=== PATIENT | female | born 1955 | race Caucasian/White ===

== ENCOUNTER → 2020-06-27 13:55 | Outpatient (BNVA) | payer MEDICAID, SELFPAY | PROVIDERS: Family Provider Internal Medicine; PCP Internal Medicine; Visit Provider Dermatology | DX: C44.319 Basal cell carcinoma of skin of other parts of face (principal); C44.91 Basal cell carcinoma of skin, unspecified; R59.0 Localized enlarged lymph nodes; L82.1 Other seborrheic keratosis; D17.22 Benign lipomatous neoplasm of skin and subcutaneous tissue of left arm; F17.210 Nicotine dependence, cigarettes, uncomplicated | CPT/HCPCS: 99203 ==

== ENCOUNTER 2020-07-19 09:31 | Outpatient (CLI) | payer MEDICAID, SELFPAY ==
--- NOTE | 2020-07-19 10:00 | CT_ITS ---
WS: [id number] CT NECK WITH CONTRAST HISTORY: left preauricular mass TECHNIQUE: Contiguous 5 mm axial images are performed through the neck with intravenous contrast. Sag ittal and coronal reformats are also submitted. All CT scans at [facility] use at least o ne of these dose optimization techniques: automated exposure control; mA and/or kV adjustment per pat ient size (includes targeted exams where dose is matched to clinical indication); or iterative recons truction. CONTRAST: CONTRAST: Omnipaque 300; 95 mL IV. DLP: 1632.67 mGy-cm. COMPARISON: None available. Nasopharynx, oropharynx, hypopharynx and larynx are unremarkable. No soft tissue masses or abnormal e nhancement. Torus tubarius and fossa of Rosenmuller and parapharyngeal fat are normal. No significant lymphadenopathy is identified. Parotid glands: There is a large lobulated hypervascular mass centered in the superficial superior pa rotid gland. Mass extends over length of 2.0 cm with a maximum transverse diameter of 1.2 cm. The sup erior lobulation enhances and contains some cystic or necrotic components. The more inferior componen t is hypervascular. There is a small adjacent lymph node or satellite lesion more superficial. No mas s within the RIGHT parotid gland. Normal submandibular glands and tiny subcentimeter LEFT thyroid nodule. Straightening of the normal cervical lordosis. C3 and C4 anterolisthesis by 3 mm. C4-5 and C5-6 degen erative disc disease and osteophytosis. Visualized portions of the skull base demonstrate no abnormalities. Orbits and globes are within norm al limits. No soft tissue masses. Visualized paranasal sinuses and mastoid air cells are normal. Lung apices are clear. CT/CT neck w con* [id number] IMPRESSION: 1. Lobulated hypervascular mass within the superior superficial LEFT parotid g land. Benign and malignant etiologies should be considered. Pleomorphic adenoma , Warthin's tumor and carcinoma within the differential. 2. No cervical chain adenopathy.
[2020-07-19] MEDS: iohexol 300 mg/mL 100 mL Btl IV (11:24)
--- NOTE | 2020-09-10 06:58 | W.PM.OPSUD ---
Surgery/Procedure H&P Update DATE OF PROCEDURE: September 10, 2020 DATE H&P PERFORMED: 08/19/20 H&P UPDATE INFORMATION: I have reviewed H&P completed within last 30 days, I have examined patient prior to procedure and No changes to prior documentation PREOP DIAGNOSIS: Left parotid mass; left temporal skin lesion PRIMARY INDICATION FOR PROCEDURE: Left parotid mass; left temporal skin lesion PLANNED PROCEDURE: Left parotidectomy, possible left neck dissection; excision left temporal skin lesion
== END 2020-07-19 09:32 | disposition home or self-care (01) ==
LOC: RADWPI 09:37
PROVIDERS: Family Provider Internal Medicine; PCP Internal Medicine; Visit Provider Dermatology
DX: R59.1 Generalized enlarged lymph nodes (principal); D49.0 Neoplasm of unspecified behavior of digestive system
CPT/HCPCS: 12345; 70491; Q9967

== ENCOUNTER 2020-09-10 10:59 | Observation (INO) | payer MEDICAID, SELFPAY ==
[2020-09-09 09:42] VITALS: BMI 28.8
[2020-09-10] VITALS (18 sets, daily range): BP systolic 93–136; BP diastolic 50–81; PULSE 67–93; RESP 13–21; TEMP 36.1–37; O2SAT 90–99
[2020-09-10] MEDS: sodium chloride 0.9% 1,000 ML 30 ML IV (06:34)
--- NOTE | 2020-09-10 06:57 | ANES.PREANE2 ---
Pre-Anesthetic Assessment Pre-Anesthetic Assessment: Height/Weight: Height 1.63 m Weight 76.204 kg Temp Pulse Resp BP Pulse Ox 98.6 F 69 18 136/72 96 09/10/20 06:11 09/10/20 06:11 09/10/20 06:11 09/10/20 06:11 09/10/20 06:11 Proposed Procedure: Operation Date: 09/10/20 07:00 Proposed Procedures p Parotidectomy [id number](Left) - Danny Birmingham MD s possible fat graft(Left) - Danny Birmingham MD Was Beta Osbaldo taken within 24 hours: Yes Last intake: Intake Last Liquid Date 09/09/20 Last Liquid Time 22:00 Last Solid Date 09/09/20 Last Solid Time 22:00 Social: Social History: Tobacco and No alcohol Exam: Pre-Anes Outpt Exam: alert, oriented x 3 and regular rate & rhythm Additional Exam Findings (including area of procedure): Rhonchi Airway: Submandibular: WNL Cervical ROM: WNL MP: 2 Dentition: False Pulmonary: Pulmonary: COPD CV/HEM: CV/HEM: HTN : : None reported Hepatic: Hepatic: None reported GI: GI: None reported Metabolic: Metabolic: None reported Musc/skel: Musc/skel: Fibromyalgia and Lower Back Pain Comments: BLE neuropathy Neuropsych: Neuropsych: Anxiety Anesthetic Plan: ASA status: 3 Anesthesia: General Risk of > 500 ml blood loss (7ml/kg in children): No Meds/Allergies Current Medications: Current Medications Generic Name Dose Route Start Last Admin Trade Name Freq PRN Reason Stop Dose Admin Sodium Chloride 1,000 mls @ 30 ml s/hr 09/10/20 06:15 09/10/20 06:34 Sodium Chloride 0.9% IV 09/11/20 06:14 30 mls/hr .Q24H REN Administration PFSH Anesthesia PFSH: Family History Other Diabetes Social History Smoking and tobacco status: current every day smoker cigarettes Packs smoked per day: 1 Alcohol intake: never History of recent travel: No Data Anesthesia Cardiac Studies: No Data to Display
--- NOTE | 2020-09-10 08:13 | SUR.OPER ---
Family Notified Of Patient's Status Via Phone.
[2020-09-10] MEDS: fluorescein 1 mg Strip 2 MG XX (08:23)
[2020-09-10] MEDS: ceFAZolin 1,000 mg SDV 1000 MG IRRIGATION (08:23)
[2020-09-10] MEDS: thrombin 5,000 unit SDV 5000 UNIT XX ×2 (08:23→10:39)
[2020-09-10] MEDS: EPINEPHrine 1 mg/mL INJ 2 MG XX (08:24)
[2020-09-10] MEDS: mupirocin oint 22 gm 1 APPLIC TOPICAL (08:25)
[2020-09-10] MEDS: EPINEPHrine 1 mg/mL INJ XX (08:55)
--- NOTE | 2020-09-10 09:16 | SUR.OPER ---
Family Notified Of Patient's Status Via Phone.
[2020-09-10] MEDS: dexamethasone 4 mg/mL INJ XX ×2 (10:26→10:38)
--- NOTE | 2020-09-10 11:52 | PM.OP ---
Operative Report Date of procedure: September 10, 2020 Pre-op Diagnosis: Left parotid mass; left temporal skin lesion Post-op diagnosis: same Post-op Findings: Left superficial parotid mass Left temporal skin lesion Procedure Done: Left superficial parotidectomy Left abdominal fat graft harvest Excisional biopsy, left temporal skin lesion Implants: None Specimens removed/disposition: Left superficial parotid mass Left temporal skin lesion Pathology: Left superficial parotid mass Left temporal skin lesion Surgeon: Danny Birmingham Fire Systems Inspector: Renato Saxena Fire Systems Inspector: Keeley Trinidad Anesthesia: General Estimated blood loss (mL): 30 IV fluids (mL): 1,400 Urine output (mL): 800 Complications: None Findings: Left preauricular superficial parotid mass resting on the facial nerve Left facial nerve identified and preserved in place Left temporal skin lesion Condition: stable Disposition: PACU Brief History: 64 yo wf with a h/o a left parotid mass and left temporal skin lesion who desires surgical therapy. Procedure: The patient was identified in the preoperative holding area and was taken to the operating room she was placed on the operating table supine position. Anesthesia was obtained with general endotracheal anesthesia and the table was turned 180 degrees. The patient's head was turned to the right exposing the left face to the operating surgeon and a modified Justen incision was drawn out on the patient's left facial skin. An ellipse was drawn out around the patient's left temporal skin lesion and the incisions were injected with local anesthesia. The Nirvana nerve monitoring system was placed on the patient and the patient was then prepped and draped in usual sterile fashion. The left facial skin incision was made with a 15 blade and was carried down through subcutaneous tissues with sharp scissors. A flap was raised over the left parotid gland that was anteriorly based with Metzenbaum scissors. The mass was identified in the left parotid by palpation and was marked with a clip. The dissection then began along a wide front in the immediate preauricular area and down over the sternocleidomastoid muscle. The tail of parotid was freed from the preauricular tissues and the sternocleidomastoid muscle. The left greater auricular nerve was identified and preserved in place. At this point while dissecting along the a wide front with the deepest portion being in the tympanomastoid suture area, the facial nerve was identified with the Nirvana nerve monitoring hemostat. The facial nerve was then dissected out in all of its branches while removing the mass identified previously. The left preauricular skin lesion was excised in elliptical fashion with a 15 blade and sharp scissors and hemostasis was achieved with cautery. This skin lesion was marked with suture and the skin lesion and the parotid mass were sent for frozen section analysis. The parotid mass came back as a benign tumor and the skin lesion came back with clear margins. Once this was accomplished attention was turned to the left lower quadrant where a fat graft was harvested with a 15 blade and Metzenbaum scissors. The left lower quadrant wound was then closed with interrupted Monocryl sutures subcu and interrupted 3-0 Prolene on the skin after placing a Sascha drain in the wound. The abdominal wound was then covered with a sterile dressing that was taped in place. The fat graft was then cut to the appropriate size and placed in the left facial wound and was sutured in place with interrupted 4-0 Monocryl sutures. The facial nerve was covered with Gelfoam soaked in thrombin. After placing the Gelfoam, a small CARMELO drain was placed in the wound and was sutured in place. The wound was closed with interrupted 4-0 Monocryl sutures subcu and running 5-0 Prolene on the skin. At this point the left temporal skin wound was undermined and then closed interrupted 5-0 Monocryl sutures subcu and a running 5-0 Prolene on the skin. At this point the procedure was terminated and control of the patient was returned to anesthesia where she underwent an uneventful reversal of anesthesia and extubation and was taken to the recovery room stable condition. There were no operative or anesthetic complications.
[2020-09-10] MEDS: fentaNYL 50 mcg/mL INJ 2mL IVP ×2 (12:15→12:20)
[2020-09-10] MEDS: triamcinolone 40 mg/mL SDV IM (12:29)
--- NOTE | 2020-09-10 12:50 | ANE.PACU2 ---
Inpatient post-anesthesia follow up: Airway intact: Yes Vital signs: Temperature 98.1 F Pulse Rate 56 Respiratory Rate 18 Blood Pressure 129/67 Pulse Oximetry 96 Oxygen Delivery Me thod Room Air Oxygen Flow Rate 2 Fraction of Inspir ed Oxygen Hydration adequate: Yes Nausea and vomiting: No Pain level: 2 Mental status: Baseline
--- NOTE | 2020-09-10 13:19 | PC.NURSE ---
was told that her daughter had her belongings
--- NOTE | 2020-09-10 13:31 | PC.NURSE ---
1300 PATIENT CAME UP WITH SCD'S ON AND SO MACHINE WAS OBTAINED AND CONNECTED TO THEM AND THEY ARE ON NOW AND WORKING.
--- NOTE | 2020-09-10 13:44 | PTH.FRZRPT ---
Frozen Section Notes Specimen(s): A. Left parotid mass B. Left temporal skin lesion, suture anterior Gross: The specimen is received in 2 containers labeled with the patient's name and MRN number. Specimen A, left parotid mass consists of a 5.5 x 2.3 x 1 cm fragment of soft tissue. The specimen is entirely inked in blue and serially sectioned to reveal a 3.1 cm fleshy mass. A section of which is submitted in cassette FS A1. Specimen B, left temporal skin lesion, suture anterior consists of a 2.3 x 0.9 x 0.2 cm gutierrez-white skin ellipse with hair follicles and a suture designated anterior, the specimen is entirely inked and the superior inferior margin is submitted for frozen section FS B1. Preliminary Impression: A. Parotid gland, left, mass, frozen section diagnosis: ?Lesional tissue with atypia (differential diagnoses includes myoepithelioma and/or myoepithelial carcinoma, basal cell carcinoma etc based on additional sections). ?Margin is negative, as the lesion is well encapsulated. B. Skin, left temporal lesion, suture anterior , excision: ?Superior inferior margin negative for malignancy. - Specimen Information Pathologist: Yolanda Vergara Date: 09/10/20 Specimen reported at what time: 10:15 - Clinician Specimen collection time: 09:50 Clinician reported to: Danny Birmingham
[2020-09-10] MEDS: lactated ringers 1,000 ML 100 ML IV (14:20)
[2020-09-10] MEDS: famotidine 20 mg/2 mL INJ IVP (14:20)
[2020-09-10] MEDS: HYDROcodone-acetaminophen 5-325 mg Tablet 1 TAB PO ×2 (14:28→20:30)
[2020-09-10] MEDS: docusate sodium 100 mg Capsule PO (17:02)
--- NOTE | 2020-09-10 17:58 | P.PN_ITS ---
Subjective Subjective: Interval history: 64 yo wf who is night of surgery s/p left superficial parotidectomy and excisional biopsy of a left temporal skin lesion. The patient reports that she is doing well. She has been able to eat, and has no other c/o. Vitals/I&O/Wt Last Vital Signs Temp 97 F L 09/10/20 13:00 Pulse 73 09/10/20 15:45 Resp 16 09/10/20 15:45 BP 93/50 09/10/20 13:00 Pulse Ox 93 09/10/20 15:45 09/10/20 09/10/20 09/10/20 06:59 14:59 22:59 Intake Total 1460 / 1460 Output Total 1630 / 1630 Balance -170 / -170 Weight last 48 hrs Weight 76.204 kg Physical Exam Const: COMMON NORMALS: no acute distress, average body habitus, patient oriented x3 and alert HENMT: COMMON NORMALS: normocephalic and external ears normal HEAD & SCALP: normocephalic EXTERNAL EAR: Yes external ears normal Eye: COMMON NORMALS: EOMs intact bilaterally and conjunctivae normal CONJUNCTIVA: Yes conjunctivae normal Neck/C-Spine: COMMON NORMALS: no lymphadenopathy THYROID: other (The left facial/neck wound is clean, intact, and without fluctuance.) Lymph: LYMPHATIC: no lymphadenopathy noted Resp: COMMON NORMALS: normal respiratory effort, No use of accessory muscles and clear to auscultation bilaterally AUSCULTATION: clear to auscultation bilaterally Cardio: COMMON NORMALS: regular rate and regular rhythm RATE: regular rate RHYTHM: regular rhythm GI: COMMON NORMALS: Normal to inspection, nondistended, normoactive bowel sounds present and non-tender Extremity: COMMON NORMALS: normal to inspection and no clubbing, cyanosis or edema Neuro: COMMON NORMALS: patient oriented x3 and CN's II-XII intact bilaterally SENSORIUM/ORIENTATION: Yes alert Skin: COMMON NORMALS: no rashes or lesions noted GENERAL SKIN EXAM: no rashes or lesions noted Urinary Catheter Management^: F: Cath Placed During This Visit: yes, but has since been removed by the nurse Urinary Catheter Date of Insertion: 09/10/20 Urinary Catheter Time of Insertion: 07:25 Date Urinary Catheter Removed: 09/10/20 Time Urinary Catheter Discontinued: 11:28 A&P Additional A&P Information Impression: Night of surgery s/p left superficial parotidectomy for left parotid mass and excisional biopsy of a left temporal skin lesion - the patient is doing well Plan: Pain control; closed suction drainage; regular diet; overnight observation; I anticipate d/c in the morning. Attestations Medical Necessity Statement*: The patient requires overnght observation for pain control and airway management. Coding Level of Care Code Acute Postal Delivery Officer for Matheus Wilson
[2020-09-10] MEDS: bacitracin ointment 28 gm 1 APPLIC TOPICAL (20:36)
[2020-09-11] MEDS: lactated ringers 1,000 ML 100 ML IV (00:15)
[2020-09-11 00:19] VITALS: BP 119/70; PULSE 69; RESP 18; TEMP 36.6; O2SAT 96
[2020-09-11] MEDS: famotidine 20 mg/2 mL INJ IVP (03:16)
--- NOTE | 2020-09-11 05:08 | PM.PN ---
Subjective Subjective: Interval history: 64 yo wf who is POD #1 s/p left superficial parotidectomy and excision of a left temporal skin lesion. The patient is without c/o this morning. She has been able to eat without difficulty and is o/w without c/o. Vitals/I&O/Wt Last Vital Signs Temp 97.9 F 09/11/20 00:19 Pulse 69 09/11/20 00:19 Resp 18 09/11/20 00:19 BP 119/70 09/11/20 00:19 Pulse Ox 96 09/11/20 00:19 09/10/20 09/10/20 09/11/20 14:59 22:59 06:59 Intake Total 1460 / 1460 991.667 / 2451.667 Output Total 1630 / 1630 Balance -170 / -170 991.667 / 821.667 Weight last 48 hrs Weight 76.204 kg Physical Exam Const: COMMON NORMALS: no acute distress and patient oriented x3 GENERAL APPEARANCE: well hydrated HENMT: COMMON NORMALS: normocephalic and external ears normal HEAD & SCALP: normocephalic FACE & SINUS: normal facial exam and other (The 7th Cranial nerve is intact bilaterally in all branches.) EXTERNAL EAR: Yes external ears normal Eye: COMMON NORMALS: EOMs intact bilaterally and conjunctivae normal GENERAL EYE: appearance normal, both eyes and all related structures CONJUNCTIVA: Yes conjunctivae normal Neck/C-Spine: COMMON NORMALS: no lymphadenopathy Lymph: LYMPHATIC: no lymphadenopathy noted Resp: COMMON NORMALS: normal respiratory effort, No use of accessory muscles and clear to auscultation bilaterally AUSCULTATION: clear to auscultation bilaterally Cardio: COMMON NORMALS: regular rate and regular rhythm RATE: regular rate RHYTHM: regular rhythm GI: COMMON NORMALS: Normal to inspection, nondistended, normoactive bowel sounds present and Soft to palpation INSPECTION: Yes other (The left lower quadrant wound is clean, dry, and intact without erythema) PALPATION: Yes Soft to palpation Extremity: COMMON NORMALS: normal to inspection Neuro: COMMON NORMALS: patient oriented x3, CN's II-XII intact bilaterally and moves all extremities Psych: COMMON NORMALS: mental status grossly normal Skin: COMMON NORMALS: no rashes or lesions noted GENERAL SKIN EXAM: no rashes or lesions noted Urinary Catheter Management^: F: Cath Placed During This Visit: yes, but has since been removed by the nurse Urinary Catheter Date of Insertion: 09/10/20 Urinary Catheter Time of Insertion: 07:25 Date Urinary Catheter Removed: 09/10/20 Time Urinary Catheter Discontinued: 11:28 A&P Additional A&P Information Impression: 64 yo wf who is POD #1 s/p left superficial parotidectomy doing well. Plan: - Continue closed suction drainage - nursing to instruct the patient in use - Apply ALDEN to the left facial/neck wounds TID - Percocet (5/325) tabs: take 1-2 tabs po Q6 hours prn pain, #25, NR - Regular diet - Ambulate TID - Change dressing on the abdominal wound QD - F/U with Dr. Birmingham on 09/13/17 @ 13:00 - The patient is to contact Dr. Birmingham for any problems Attestations Medical Necessity Statement*: The patient required overnight observation of her airway. Coding Level of Care Code Acute Ophthalmic Photographer for Matheus Wilson
[2020-09-11 05:31] VITALS: BP 129/67; PULSE 56; RESP 18; TEMP 36.7; O2SAT 96
[2020-09-11] MEDS: HYDROcodone-acetaminophen 5-325 mg Tablet 1 TAB PO (05:33)
[2020-09-11 07:26] VITALS: BP 134/70; PULSE 59; RESP 16; TEMP 36.7; O2SAT 97
[2020-09-11] MEDS: gabapentin 100 mg Capsule PO (08:15)
[2020-09-11] MEDS: desvenlafaxine 50 mg Tablet PO (08:15)
[2020-09-11] MEDS: docusate sodium 100 mg Capsule PO (08:15)
[2020-09-11] MEDS: atenolol 50 mg Tablet 25 MG PO (08:15)
[2020-09-11] MEDS: bacitracin ointment 28 gm 1 APPLIC TOPICAL (08:15)
--- NOTE | 2020-09-11 08:36 | PC.NURSE ---
Teaching on caring CARMELO drain and dressing change to abd. Patient verbalized understanding and teach back done. patient's incision cleaned with NS and ALDEN applied.
--- NOTE | 2020-09-11 10:27 | PC.NURSE ---
patient given discharge instructions and patient verbalized understanding of instructions. patient dressed and waiting on family to arrive for ride home.
--- NOTE | 2020-09-11 11:27 | PC.NURSE ---
patient taken to private vehicle by screen writer
[2020-09-11 11:28] VITALS: BP 134/70; PULSE 59; RESP 16; TEMP 36.7; O2SAT 97
--- NOTE | 2020-09-12 09:41 | PC.RESP ---
SMOKING CESSATION INFORMATION SENT TO PATIENT.
== END 2020-09-11 11:28 | disposition home or self-care (01) ==
LOC: MEDSURG 11:00
PROVIDERS: Admitting Provider Specialist; PCP Internal Medicine; Visit Provider Specialist
PROC: (CPT 42410; principal; 2020-09-10 07:00)
PROC: (CPT 11643; 2020-09-10 07:00)
DX: D11.0 Benign neoplasm of parotid gland (principal); C44.319 Basal cell carcinoma of skin of other parts of face; J44.9 Chronic obstructive pulmonary disease, unspecified; I10 Essential (primary) hypertension; M79.7 Fibromyalgia; F41.9 Anxiety disorder, unspecified; F17.210 Nicotine dependence, cigarettes, uncomplicated
CPT/HCPCS: 11643; 12051; 42415; 12345; 51702; 88305; 88307; 94664; 96360; 96361; 96372; 96375; G0378; J0171; J0330; J0690; J1100; J1170; J2250; J2370; J2405; J2704; J3010; J3301; J3490; J7030

== ENCOUNTER 2020-10-23 12:59 | Outpatient (CLI) | payer MEDICAID, SELFPAY ==
--- NOTE | 2020-10-28 12:47 | PTH.FRZRPT ---
Frozen Section Notes Specimen(s): Left temporal suture anterior skin Gross: The specimen is received fresh in a container labeled the patient's name and MRN number and additionally labeled, skin, left temporal?suture anterior and consists of an ellipse of gutierrez-pink skin measuring 3 x 0.7 x 0.1 cm. The sutures anterior margin 6:00 and the posterior is marked 12:00. 6-12 o'clock is inked in blue and 12-6 o'clock is inked in red. The tips are submitted including serial sectioning of the margins. Preliminary Impression: A. Skin, left temporal?suture anterior, FSA 1/FSA 2: ?Basal cell carcinoma, 1 mm from the anterior margin. ?Margin is negative. - Specimen Information Pathologist: Yolanda Vergara Date: 10/23/20 Specimen reported at what time: 12:40 - Clinician Specimen collection time: 12:20 Clinician reported to: Danny Birmingham
== END 2020-10-23 13:00 | disposition home or self-care (01) ==
LOC: LAB 13:01
PROVIDERS: PCP Internal Medicine; Visit Provider Specialist
DX: C44.319 Basal cell carcinoma of skin of other parts of face (principal)
CPT/HCPCS: 88304

== ENCOUNTER 2020-12-23 13:42 | Outpatient (CLI) | payer MEDICAID, SELFPAY ==
--- NOTE | 2020-12-23 15:10 | N.ONRAD NP_ITS ---
Radiation Oncology Consultation Patient Name: Georgia Taylor Date of : 1955 Date of Service: 12/23/2020 Attending Physician: Dilan Prescott M.D. Georgia Taylor was seen in consultation this afternoon at the request of Danny Birmingham M.D. for evaluation regarding adjuvant head and neck radiotherapy for the management of a recently diagnosed parotid cancer. She presented to the [facility] dermatology clinic in June with a complaint of a new left taoist skin lesion. Examination identified a firm, painless preauricular mass. A CT of the neck obtained on July 19, 2020 identified a lobulated, hypervascular mass in the superficial parotid gland measuring 2 cm with cystic and necrotic components. A small adjacent lymph node or satellite lesion was also present. A fine-needle aspiration was on July 29, 2020. A pleomorphic adenoma was diagnosed. A left superficial parotidectomy with abdominal fat graft harvest was performed on September 10, 2020. 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 A referral to the [facility] Department of Otolaryngology for consideration of a deep lobe parotidectomy and neck dissection was obtained. An MR was recommended prior to final surgical recommendations. However, she is claustrophobic and a CT of the neck was obtained on December 17, 2020. Imaging (requested from the outside hospital and independently visualized in [facility]) demonstrated a partially resected left superficial parotid lobe. he patient presents for discussion regarding consideration for post-operative radiotherapy. I discussed with Ms. 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 I reviewed the National Comprehensive Cancer Network guidelines for adjuvant radiotherapy newly resected tumors with adverse features (i.e. intermediate or high-grade, positive margins, perineural/lymphovascular invasion, cervical lymph node metastases or advanced tumors; T3-T4) I would recommend a 6-week course of radiation therapy if CT imaging confirms no recurrent disease (will be reviewed by Danny Birmingham M.D.) Prior to beginning treatment, a planning CT scan with contrast will be acquired to delineate the clinical target volume. I reviewed the potential toxicities of head and neck radiotherapy. The patient has verbalized understanding and would like to proceed as endorsed. Signed by: Dr. Dilan Prescott 12/23/2020 3:08:41 PM
== END 2020-12-23 13:43 | disposition home or self-care (01) ==
LOC: ONCMED 13:49
PROVIDERS: Visit Provider Radiology Radiation Oncology
DX: C07 Malignant neoplasm of parotid gland (principal); C77.8 Secondary and unspecified malignant neoplasm of lymph nodes of multiple regions; Z79.899 Other long term (current) drug therapy
CPT/HCPCS: 99205

== ENCOUNTER 2021-01-01 06:16 | Outpatient (RCR) | payer MEDICAID, SELFPAY ==
--- NOTE | 2021-01-06 | CT_ITS ---
Radiation Therapy Planning CT images; total exam DLP: 513.76 mGy-cm MTDD
== END 2021-01-08 23:59 | disposition home or self-care (01) ==
LOC: ONCMED 06:16
PROVIDERS: Visit Provider Radiology Radiation Oncology
DX: Z51.0 Encounter for antineoplastic radiation therapy (principal); C07 Malignant neoplasm of parotid gland
CPT/HCPCS: 77300; 77301; 77334; 77338; Q9967

== ENCOUNTER 2021-02-06 05:45 | Outpatient (RCR) | payer MEDICAID, SELFPAY ==
--- NOTE | 2021-01-14 16:04 | ONCRAD TMN_ITS ---
Radiation Oncology Treatment Management Note Patient Name: Georgia Taylor Date of : 1955 Date of Service: 01/14/2021 Attending Physician: Dilan Prescott M.D. 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 A superficial parotidectomy with an abdominal fat graft was performed on September 10, 2020. A positive margin was present upon final pathology. The patient has received 2 Gy of a prescribed 66 Cohn with an intensity modulated radiotherapy plan utilizing a step and shoot treatment technique. Upon review of systems, she denied any complaints related to radiotherapy. On physical examination, the patient weighed 173 lbs. Her temperature was 97.9 ???F with a blood pressure of 108/64 mmHg. Her pulse was 56 bpm and the respiratory rate was 18. No erythema was present within the treatment siddiqi. Continue post-operative head and neck radiotherapy as prescribed. Signed by: Dr. Dilan Prescott 01/14/2021 4:02:36 PM
--- NOTE | 2021-01-21 15:54 | ONCRAD TMN_ITS ---
Radiation Oncology Treatment Management Note Patient Name: Georgia Taylor Date of : 1955 Date of Service: 01/21/2021 Attending Physician: Dilan Prescott M.D. 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 A superficial parotidectomy with an abdominal fat graft was performed on September 10, 2020. A positive margin was present upon final pathology. The patient has received 12 Gy of a prescribed 66 Cohn with an intensity modulated radiotherapy plan utilizing a step and shoot treatment technique. Upon review of systems, she denied any complaints related to radiotherapy. On physical examination, the patient weighed 173 lbs. Her temperature was 98.4 ???F with a blood pressure of 116/68 mmHg. Her pulse was 68 bpm and the respiratory rate was 20. There was no erythema was present within the treatment siddiqi. Continue post-operative head and neck radiotherapy as planned. Signed by: Dr. Dilan Prescott 01/21/2021 3:53:54 PM
--- NOTE | 2021-01-29 15:58 | ONCRAD TMN_ITS ---
Radiation Oncology Treatment Management Note Patient Name: Georgia Taylor Date of : 1955 Date of Service: 01/29/2021 Attending Physician: Dilan Prescott M.D. 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 A superficial parotidectomy with an abdominal fat graft was performed on September 10, 2020. A positive margin was present upon final pathology. The patient has received 18 Gy of a prescribed 66 Cohn with an intensity modulated radiotherapy plan utilizing a step and shoot treatment technique. Upon review of systems, she denied any complaints related to radiotherapy. On physical examination, the patient weighed 175 lbs. Her temperature was 98.1 ???F with a blood pressure of 123/58 mmHg. Her pulse was 68 bpm and the respiratory rate was 18. There was no erythema was present within the treatment siddiqi. Continue post-operative head and neck radiotherapy as prescribed. Signed by: Dr. Dilan Prescott 01/29/2021 3:56:39 PM
--- NOTE | 2021-02-04 15:50 | ONCRAD TMN_ITS ---
Radiation Oncology Treatment Management Note Patient Name: Georgia Taylor Date of : 1955 Date of Service: 02/04/2021 Attending Physician: Dilan Prescott M.D. 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 A superficial parotidectomy with an abdominal fat graft was performed on September 10, 2020. A positive margin was present upon final pathology. The patient has received 24 Gy of a prescribed 66 Cohn with an intensity modulated radiotherapy plan utilizing a step and shoot treatment technique. Upon review of systems, she denied any complaints related to radiotherapy. On physical examination, the patient weighed 174 lbs. Her temperature was 97.3 ???F with a blood pressure of 104/62 mmHg. Her pulse was 66 bpm and the respiratory rate was 20. There was no erythema was present within the treatment siddiqi. Continue post-operative head and neck radiotherapy as planned. Signed by: Dr. Dilan Prescott 02/04/2021 3:49:38 PM
== END 2021-02-07 23:59 | disposition home or self-care (01) ==
LOC: ONCMED 05:45
PROVIDERS: Visit Provider Radiology Radiation Oncology
DX: Z51.0 Encounter for antineoplastic radiation therapy (principal); C08.9 Malignant neoplasm of major salivary gland, unspecified
CPT/HCPCS: 77014; 77336; 77386

== ENCOUNTER 2021-03-07 05:54 | Outpatient (RCR) | payer MEDICAID, SELFPAY ==
--- NOTE | 2021-02-11 16:08 | ONCRAD TMN_ITS ---
Radiation Oncology Treatment Management Note Patient Name: Georgia Taylor Date of : 1955 Date of Service: 02/11/2021 Attending Physician: Dilan Prescott M.D. 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 A superficial parotidectomy with an abdominal fat graft was performed on September 10, 2020. A positive margin was present upon final pathology. The patient has received 32 Gy of a prescribed 66 Cohn with an intensity modulated radiotherapy plan utilizing a step and shoot treatment technique. Upon review of systems, she denied any complaints related to radiotherapy. On physical examination, the patient weighed 175 lbs. Her temperature was 97.1 ???F with a blood pressure of 108/59 mmHg. Her pulse was 65 bpm and the respiratory rate was 18. There was no erythema was present within the treatment siddiqi. Continue post-operative head and neck radiotherapy as prescribed. Signed by: Dr. Dilan Prescott 02/11/2021 4:06:57 PM
--- NOTE | 2021-02-18 16:00 | ONCRAD TMN_ITS ---
Radiation Oncology Treatment Management Note Patient Name: Georgia Taylor Date of : 1955 Date of Service: 02/18/2021 Attending Physician: Dilan Prescott M.D. 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 A superficial parotidectomy with an abdominal fat graft was performed on September 10, 2020. A positive margin was present upon final pathology. The patient has received 40 Gy of a prescribed 66 Cohn with an intensity modulated radiotherapy plan utilizing a step and shoot treatment technique. Upon review of systems, she denied any complaints related to radiotherapy. On physical examination, the patient weighed 175 lbs. Her temperature was 97.6 ???F with a blood pressure of 101/62 mmHg. Her pulse was 68 bpm and the respiratory rate was 18. There was no erythema was present within the treatment siddiqi. Continue post-operative head and neck radiotherapy as planned. Signed by: Dr. Dilan Prescott 02/18/2021 3:58:40 PM
--- NOTE | 2021-02-25 16:02 | ONCRAD TMN_ITS ---
Radiation Oncology Treatment Management Note Patient Name: Georgia Taylor Date of : 1955 Date of Service: 02/25/2021 Attending Physician: Dilan Prescott M.D. 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 A superficial parotidectomy with an abdominal fat graft was performed on September 10, 2020. A positive margin was present upon final pathology. The patient has received 44 Gy of a prescribed 66 Cohn with an intensity modulated radiotherapy plan utilizing a step and shoot treatment technique. Upon review of systems, she described fatigue. On physical examination, the patient weighed 174 lbs. Her temperature was 97.3 ???F with a blood pressure of 116/62 mmHg. Her pulse was 72 bpm and the respiratory rate was 18. There was no erythema was present within the treatment siddiqi. Continue post-operative head and neck radiotherapy as prescribed. Signed by: Dr. Dilan Prescott 02/25/2021 4:01:54 PM
--- NOTE | 2021-03-05 16:44 | ONCRAD TMN_ITS ---
Radiation Oncology Weekly Treatment Management Patient: Claudia Bourne MR#: [id number] : 1955> Attending Physician: Dr. Dickson Bruce Date of Service: 03/05/2021 Referring Physician(s) : Dr. Danny Birmingham Diagnosis: C08.9 - Malignant neoplasm of major salivary gland, unspecified, Diagnosed 07/29/2020 (Active) Stage II, T2, pN0, M0 Radiotherapy to date: Course: Parotid 2020, Treatment Site: Parotid Ca, Ref. ID: [id number], Energy: 6X, Dose/Fx (cGy): 200, #Fx: 25 / 33, Dose Correction (cGy): 0, Total Dose (cGy): 5,000, Start Date: 01/14/2021, Elapsed Days: 50 Reason for visit: The patient is being seen today as part of their regularly scheduled weekly on treatment visits to assess for acute toxicities from radiotherapy. Review of Systems: she notes some left ear and lateral left neck pain. Not taking any treatment for this. Some sore throat noted. Caring for mother who has been in [place] and hospital. Still smoking a pack or so a day. Did not tolerate Chantix well in the past. Using topical moisturizer on left ear and neck. Vital Signs: Performed on 03/05/2021 3:58 PM BMI - 29.558 kg/m2 (high), Height - 64.00 in, Weight - 172.2 lbs, Temperature - 97.9 f, Pulse - 74, Respiration - 18, O2 Sat - 98 %, Pain - 0 and BP - 129/ 78 mm(hg). Physical Exam: modest tenderness of left ear. Modest erythema of ear and left neck. Imaging: Radiation therapy imaging related to accurate target localization (i.e. KV, MV and CBCT) was reviewed. Appropriate changes, if any, were made to ensure treatment accuracy. Plan: Good tolerance of RT. Add triple mix for sore throat. Discussed critical need to stop smoking. She is willing to try nicotine patch. Continue treatment as planned. Signed by: Dr. Dickson Bruce 03/05/2021 4:43:07 PM
== END 2021-03-10 23:59 | disposition home or self-care (01) ==
LOC: ONCMED 05:54
PROVIDERS: Visit Provider Radiology Radiation Oncology
DX: Z51.0 Encounter for antineoplastic radiation therapy (principal); C08.9 Malignant neoplasm of major salivary gland, unspecified; Z79.899 Other long term (current) drug therapy
CPT/HCPCS: 77336; 77386

== ENCOUNTER 2021-03-26 05:55 | Outpatient (RCR) | payer MEDICAID, SELFPAY | END 2021-04-09 23:59 | disposition home or self-care (01) | LOC: ONCMED 05:55 | PROVIDERS: Visit Provider Radiology Radiation Oncology | DX: Z51.0 Encounter for antineoplastic radiation therapy (principal); C08.9 Malignant neoplasm of major salivary gland, unspecified; Z79.899 Other long term (current) drug therapy | CPT/HCPCS: 77014; 77336; 77386; 77427 ==

== ENCOUNTER 2021-07-15 14:36 | Outpatient (CLI) | payer MEDICAID, SELFPAY ==
--- NOTE | 2021-07-15 14:43 | CT_ITS ---
WS: [id number] CT scan of the neck. Additional two-dimensional coronal and sagittal reconstruction was performed. Clinical Data: MALIGNANT NEOPLASM OF MAJOR SALIVARY GLAND, BENIGN NEOPLASM Comparison: CT neck, 12/17/2020. DLP: 1036.[address] scans at [facility] use at least one of these dose optimization techniques: automated e xposure control; mA and/or kV adjustment per patient size (includes targeted exams where dose is matc hed to clinical indication); or iterative reconstruction. Findings: No lymphadenopathy is noted. There is a low density region in the left parotid gland measuring 1.1 x 2.3 cm unchanged from the prior study. There is no prevertebral soft tissue swelling. The larynx is s ymmetric. The thyroid gland shows normal enhancement. The floor of the mouth and parapharyngeal space s are normal. The oral cavity is unremarkable. The carotid arteries bifurcate normally. The vertebral arteries are unremarkable. The cervical spine shows osteoarthritis and degenerative disc narrowing from C3-4 through C7. The lung apices show no ab normalities. The portions of the intracranial circulation which are seen demonstrate no abnormalities . No erosion of the skull or skull base is seen. CT/CT neck w con* [id number] Impression: 1. Low-density region in the left parotid gland which represents the site of th erapy for the parotid lesion unchanged. 2. No change in remainder of the CT neck.
[2021-07-15 15:17] LABS: Blood Urea Nitrogen 13 mg/dL (8-23); Glomerular Filtration Rate 84.5 mL/min (90-130)
[2021-07-15] MEDS: iohexol 300 mg/mL 100 mL Btl IV (15:25)
== END 2021-07-15 14:37 | disposition home or self-care (01) ==
PROVIDERS: Visit Provider Specialist
DX: C08.9 Malignant neoplasm of major salivary gland, unspecified (principal); D11.0 Benign neoplasm of parotid gland
CPT/HCPCS: 70491; 82565; 84520; Q9967